=== PATIENT | female | born 1980 | race Two or more races ===

== ENCOUNTER 2020-12-17 07:37 | Emergency (ER) | payer MEDICAID ==
[~2020-12-17] VITALS: Ht 160 cm; Wt 80.7 kg
[2020-12-17 07:40] VITALS: BP 109/68
== END 2020-12-17 12:02 | disposition home or self-care (01) ==
LOC: ER 07:37
DX: O20.8 Other hemorrhage in early pregnancy (principal); Z3A.37 37 weeks gestation of pregnancy